=== PATIENT | female | born 1950 | race Caucasian/White ===

== ENCOUNTER → 2018-04-04 18:03 | Outpatient (CLI) | payer MEDICARE, OTHER ==
[2009-12-25 07:48] VITALS: BMI 22.7
== END | disposition home or self-care (01) ==
LOC: D.MAMMO 09:30
DX: Z12.31 Encounter for screening mammogram for malignant neoplasm of breast (principal)

== ENCOUNTER → 2018-09-25 09:36 | Outpatient (CLI) | payer MEDICARE, OTHER ==
[2009-12-25 07:48] VITALS: BMI 22.7
== END | disposition home or self-care (01) ==
LOC: D.MRI 09:36
DX: M54.5 Low back pain (principal)

== ENCOUNTER 2019-04-12 09:00 | Outpatient (CLI) | payer MEDICARE, OTHER ==
[2009-12-25 07:48] VITALS: BMI 22.7
== END 2019-04-12 10:00 | disposition home or self-care (01) ==
LOC: D.MAMMO 09:00
PROVIDERS: ATTEND Clinical Nurse Specialist Family Health
DX: Z12.31 Encounter for screening mammogram for malignant neoplasm of breast (principal)

== ENCOUNTER 2019-06-01 10:34 | Day surgery (SDC) | payer MEDICARE, OTHER ==
[~2019-06-01] VITALS: Ht 167.6 cm; Wt 63.5 kg
[~2019-06-01 10:34] MED LIST: COZAAR50 MG PO; SYNTHROID75 MCG PO
[2019-06-01 11:02] LABS: HEMATOCRIT 42.8 % (36.0-48.0); HEMOGLOBIN 14.4 g/dL (12-16); MCHC 33.6 g/dL (31.0-37.0); MCV 103.9 fL (80.0-100.0); RBC 4.12 10x6/uL (4.00-5.40); RDW 13.5 % (11.5-14.5); WBC 4.8 10x3/uL (4.8-10.8)
[2019-06-01] MEDS ORDERED: NORVASC10 MG PO (11:58)
[2019-06-01] MEDS ORDERED: CENTRUM SILVER1 EAC3 PO (11:59)
[2019-06-01] MEDS ORDERED: CO Q-10100 MG PO (12:00)
[2019-06-01] MEDS ORDERED: OS-CAL500 MG PO (12:01)
[2019-06-01] MEDS ORDERED: ZYLOPRIM100 MG PO (12:01)
[2019-06-01] MEDS ORDERED: EC-NAPROSYN500 MG PO (12:02)
[2019-06-01 12:03] VITALS: BP 144/84; Ht 167.6 cm; Wt 63.5 kg
[2019-06-01] MEDS ORDERED: TYLENOL W/CODEI1 TAB PO (16:30)
--- NOTE | 2019-06-02 08:27 | OP ---
PATIENT NAME: ILDEFONSO LOZANO MEDICAL RECORD: [id number] :48 LOCATION:[facility] ADMISSION DATE: SURGEON: TAI UGARTE DO DATE OF OPERATION: 06/01/2019 PROCEDURE PERFORMED: Excision of ganglion cyst of the left foot. PREOPERATIVE DIAGNOSIS: Cyst, left foot. POSTOPERATIVE DIAGNOSIS: Cyst, left foot. INDICATION FOR PROCEDURE: Ms. Lozano is a 69-year-old female who had a cyst on her left anterior foot, right over the anterior tibialis tendon. She had it drained and the hole never healed and it kept draining, draining, and draining. She was concerned about it and came to see me this week. I told her we can excise the cyst and there would be a chance of recurrence also infection, bleeding, damage to nerves or vessels, need for further surgery, blood clots, and even and she signed the consent. SURGEON: Tai Ugarte DO DESCRIPTION OF PROCEDURE: The patient was taken to the operative suite, laid in supine position, given general anesthetic and LMA was placed. She was given 1 gram Ancef. The left lower extremity was then prepped and draped in sterile fashion. Timeout was performed. Everybody was in agreeance with correct side, site, patient, and procedure. The left foot was then exsanguinated with an Esmarch and the tourniquet was inflated to 250 mmHg, it was up for 8 minutes. The incision was then made over the cyst, which is right over the anterior tibialis tendon. Once I made the incision, the cyst had congealed and this congealed material was removed out of the wound, ensuring the tendon was intact and indeed was. There were no other cysts in the area and then took a 3-0 Vicryl in an interrupted fashion to close the skin and 4-0 Monocryl horizontal mattress fashion on the skin. The tourniquet was deflated at 8 minutes. There was no bleeding and is dressed with Adaptic, 4 x 4s, Kerlix, and then Dax wrap wrapped to the foot. She was awakened and taken to recovery in stable condition. BLOOD LOSS: Minimal. COMPLICATIONS: None. TRANSINT:[id number] Voice Confirmation ID: [id number] DOCUMENT ID: [id number] TAI UGARTE DO at 0827 CC: [id number] DICTATION DATE: 06/01/19 1626 CULINARY ASSISTANT: 06/02/19 0046 [facility] 06/01/19 [facility] [address] [place] [address]
== END 2019-06-01 17:45 | disposition home or self-care (01) ==
LOC: D.OPS 10:34 → D.PAN 13:15 → D.OPS 13:15
PROVIDERS: Anesthesiology; ATTEND Orthopaedic Surgery
DX: M67.472 Ganglion, left ankle and foot (principal); Z01.812 Encounter for preprocedural laboratory examination

== ENCOUNTER 2020-02-25 15:00 | Inpatient (IN) | payer MEDICARE ==
[~2020-02-25] VITALS: Ht 167.6 cm; Wt 60.8 kg
[~2020-02-25 15:00] MED LIST changes: +CENTRUM SILVER1 EAC3 PO; +CO Q-10100 MG PO; +EC-NAPROSYN500 MG PO; +NORVASC10 MG PO; +OS-CAL500 MG PO; +TYLENOL W/CODEI1 TAB PO; +ZYLOPRIM100 MG PO
[2020-02-25 15:57] LABS: HEMATOCRIT 37.2 % (36.0-48.0); HEMOGLOBIN 12.7 g/dL (12-16); LYMPHOCYTES 12.4 % (15-50); MCH 34.3 pg (26.0-34.0); MCHC 34.1 g/dL (31.0-37.0); MCV 100.5 fL (80.0-100.0); MEAN PLATELET VOLUME 10.4 fL (7.4-10.4); NEUTROPHILS 79.7 % (40-80); PLATELET COUNT 199 10x3/uL (130-400); WBC 10.4 10x3/uL (4.8-10.8)
[2020-02-25 17:16] LABS: ALBUMIN 3.1 g/dL (3.4-5.0); ALKALINE PHOSPHATASE 56 U/L (30-120); ALT (SGPT) 24 U/L (10-68); BILIRUBIN - TOTAL 0.36 mg/dL (0.2-1.3); CALC OSMOLALITY 266 mosm/kg (275-300); CALCIUM 8.9 mg/dL (8.5-10.1); CARBON DIOXIDE 28.5 mmol/L (21.0-32.0); CHLORIDE - SERUM 98 mmol/L (98-107); CREATININE - SERUM 0.7 mg/dL (0.6-1.3); GLUCOSE 102 mg/dL (74-106); POTASSIUM - SERUM 3.5 mmol/L (3.5-5.1); PROTEIN - SERUM 7.2 g/dL (6.4-8.2); SODIUM 134 mmol/L (136-145); UREA NITROGEN 11 mg/dL (7-18); eGFR NON AFRICAN AMERICAN 88 mL/min (90-120)
--- NOTE | 2020-02-25 17:20 | NUR ---
RECEIVED PT TO ROOM.
--- NOTE | 2020-02-25 19:07 | NUR ---
PT ALERT. RECEIVING ULTRASOUND.
[2020-02-25 20:50] LABS: INR 1.01 (0.85-1.17); PROTIME 13.3 SECONDS (11.6-15.0)
[2020-02-25 20:51] LABS: APTT 48.2 SECONDS (22.8-39.4)
--- NOTE | 2020-02-25 22:15 | NUR ---
PT ARRIVED TO FLOOR AOX4. AMBULATED FROM WC TO BATHROOM THEN TO BED. ABLE TO WALK ON LEFT FOOT BUT PAINFUL. FOOT RED AND SWOLLEN. DRAINAGE COMING FROM BETWEEN FOURTH AND FIFTH TOE. PT STATES SHE WAS SEEING THE WOUND CLINIC FOR THE LAST COUPLE WEEKS BUT IT HAS ONLY GOTTEN WORSE. IV RIGHT FA SL. STATES PAIN 01/22. GAVE MORPHINE ORDERED. PROVIDED WATER. DENIES OTHER NEEDS. CL IN REACH, WILL CTM
[2020-02-25 22:57] VITALS: BP 146/83; BMI 21.6
[2020-02-26] MEDS ORDERED: FOLIC ACID1 MG PO (00:45)
[2020-02-26] MEDS ORDERED: COLCRYS0.6 MG PO (00:45)
[2020-02-26] MEDS ORDERED: PLAVIX75 MG PO (00:45)
[2020-02-26] MEDS ORDERED: VIT PO (00:47)
[2020-02-26] MEDS ORDERED: HAIR SKIN PO (00:47)
[2020-02-26] MEDS ORDERED: ESTRATEST 1.25-1 TAB PO (00:48)
[2020-02-26] MEDS ORDERED: OMEPRAZOLE20 M1 PO (00:49)
[2020-02-26 04:00] VITALS: BP 143/82
[2020-02-26 05:18] LABS: HEMATOCRIT 35.6 % (36.0-48.0); HEMOGLOBIN 11.9 g/dL (12-16); LYMPHOCYTES 17.3 % (15-50); MCH 33.7 pg (26.0-34.0); MCHC 33.4 g/dL (31.0-37.0); MCV 100.8 fL (80.0-100.0); MEAN PLATELET VOLUME 10.1 fL (7.4-10.4); NEUTROPHILS 72.2 % (40-80); PLATELET COUNT 202 10x3/uL (130-400); RBC 3.53 10x6/uL (4.00-5.40); RDW 12.9 % (11.5-14.5)
[2020-02-26 05:39] LABS: ALBUMIN 2.7 g/dL (3.4-5.0); ALKALINE PHOSPHATASE 51 U/L (30-120); ALT (SGPT) 20 U/L (10-68); BILIRUBIN - TOTAL 0.46 mg/dL (0.2-1.3); CALC OSMOLALITY 268 mosm/kg (275-300); CALCIUM 8.3 mg/dL (8.5-10.1); CARBON DIOXIDE 31.1 mmol/L (21.0-32.0); CHLORIDE - SERUM 101 mmol/L (98-107); CREATININE - SERUM 0.6 mg/dL (0.6-1.3); GLUCOSE 94 mg/dL (74-106); POTASSIUM - SERUM 3.2 mmol/L (3.5-5.1); PROTEIN - SERUM 6.5 g/dL (6.4-8.2); SODIUM 135 mmol/L (136-145); UREA NITROGEN 9 mg/dL (7-18); eGFR NON AFRICAN AMERICAN > 90 mL/min (90-120)
[2020-02-26 09:35] VITALS: BP 131/83
[2020-02-26 13:17] VITALS: BP 142/80
[2020-02-26 15:05] VITALS: Ht 167.6 cm; Wt 60.8 kg
--- NOTE | 2020-02-26 18:22 | NUR ---
PATIENT BACK FROM MRI. IV INTACT. NO COMPLAINTS. WILL START IV ANTIBIOTICS. CALL LIGHT WITHIN REACH.
[2020-02-26 20:00] VITALS: BP 136/80
--- NOTE | 2020-02-26 20:00 | NUR ---
PT SITTING UP IN BED WITHOUT DISTRESS, AOX4. FAMILY AT BEDSIDE. RIGHT FA IV LEAKING, REMOVED WITH CATH INTACT. RESITED 20G TO LEFT FA X1 ATTEMPT. CALLED DR PRICE AND RECIEVED ORDERS FOR MIRALAX AND BENADRYL, SEE MAR. HIBI CLEANSE BATH AT THIS TIME, LINENS CHANGED. DENIES OTHER NEEDS. CL IN REACH, WILL CTM
[2020-02-27] VITALS (13 sets, daily range): BP systolic 114–146; BP diastolic 61–75
--- NOTE | 2020-02-27 19:27 | NUR ---
PATIENT IN BED WITH IV INTACT. NO COMPLAINTS OR SIGNS OF DISTRESS. VS STABLE. BLOCK STILL WORKING FOR PATIENT PAIN. DRESSING TO LLE INTACT. SCD ON RLE ON AND WORKING. CALL LIGHT WITHIN REACH.
[2020-02-28] VITALS: BP 151/64
[2020-02-28 04:00] VITALS: BP 107/73
[2020-02-28 06:20] LABS: CALC OSMOLALITY 275 mosm/kg (275-300); CALCIUM 7.5 mg/dL (8.5-10.1); CHLORIDE - SERUM 104 mmol/L (98-107); CREATININE - SERUM 0.6 mg/dL (0.6-1.3); GLUCOSE 102 mg/dL (74-106); MAGNESIUM - SERUM 2.1 mg/dL (1.8-2.4); PHOSPHOROUS 2.6 mg/dL (2.5-4.9); POTASSIUM - SERUM 3.2 mmol/L (3.5-5.1); SODIUM 139 mmol/L (136-145); UREA NITROGEN 7 mg/dL (7-18); eGFR NON AFRICAN AMERICAN > 90 mL/min (90-120)
[2020-02-28 07:40] LABS: HEMATOCRIT 35.5 % (36.0-48.0); LYMPHOCYTES 11.3 % (15-50); MCH 34.2 pg (26.0-34.0); MCHC 33.8 g/dL (31.0-37.0); MCV 101.1 fL (80.0-100.0); MEAN PLATELET VOLUME 10.5 fL (7.4-10.4); NEUTROPHILS 80.8 % (40-80); PLATELET COUNT 252 10x3/uL (130-400); RBC 3.51 10x6/uL (4.00-5.40); RDW 12.5 % (11.5-14.5); WBC 7.2 10x3/uL (4.8-10.8)
--- NOTE | 2020-02-28 08:01 | OP ---
PATIENT NAME: ILDEFONSO LOZANO MEDICAL RECORD: [id number] :48 LOCATION:D.MS [id number] ADMISSION DATE:02/25/20 SURGEON: TAI UGARTE DO DATE OF OPERATION: 02/27/2020 PROCEDURE PERFORMED: Left fourth toe amputation. PREOPERATIVE DIAGNOSIS: Left foot fourth toe osteomyelitis. POSTOPERATIVE DIAGNOSIS: Left foot fourth toe osteomyelitis. INDICATIONS: Ms. Lozano is a 69-year-old female who presented to the hospital with swelling in the left fourth toe, started to turn necrotic, it was quite swollen. MRI was done showing osteomyelitis in the proximal phalanx. I informed her due to the size and swelling and necrosis of the soft tissue, we need to do an amputation and she has very poor likelihood of healing it on her own. She is okay with that and is aware of the risks including further amputation of the foot, further infection, bleeding, damage to nerves and vessels and she signed the consent. SURGEON: Tai Ugarte DO DESCRIPTION OF PROCEDURE: The patient was given a block by anesthesia in the preoperative area, taken to the operative suite. She is on scheduled vancomycin. The left lower extremity was prepped after she was sedated and LMA was placed and then left lower extremity was draped. I then made an elliptical incision around the base of the fourth toe and removed the toe and rongeured back the fourth metatarsal, removing the head, so there was no articular cartilage left. I then irrigated the site and then closed it with a 2-0 Prolene in a modified Donati type stitch. It was then dressed by Adaptic, 4 x 4, Kerlix, and Dax wrap. She was awakened and taken to recovery in stable condition. BLOOD LOSS: Minimal. COMPLICATIONS: None. TRANSINT:[id number] Voice Confirmation ID: [id number] DOCUMENT ID: [id number] TAI UGARTE DO at 0801 CC: [id number] DICTATION DATE: 02/27/20 1251 SWEEPER OPERATOR HIGHWAYS: 02/27/20 1408 ADM IN [facility] [address] [place] [address]
[2020-02-28 10:31] VITALS: BP 137/72
[2020-02-28 13:20] VITALS: BP 149/68
--- NOTE | 2020-02-28 13:28 | NUR ---
Nutrition follow-up: Pt receiving a regular diet with poor po intake at this time Pt to have more toes amputated Labs reviewed Wt: 134# Will continue to provide food choices and honor all food preferences. Will encourage increased po intake Will offer nutritional supplements. RDN following.
[2020-02-28 17:38] VITALS: BP 135/73
[2020-02-28 20:00] VITALS: BP 123/60
--- NOTE | 2020-02-28 20:00 | NUR ---
PT SITTING UP IN BED WITHOUT DISTRESS, AOX4. SON AT BEDSIDE. IV RIGHT FA INFUSING NS @ 75. SCD TO RIGHT LEG. LEFT FOOT DRESSING CDI. PT HAS RED RASH ON BILAT LEGS AND RIGHT ARM. REQUESTING BENADRYL AT BEDTIMES. STATES SHE WILL CALL WHEN READY. DENIES NEED FOR PAIN MED AT THIS TIME. ASSISTED PT IN WASHING HAIR WITH SHAMPOO CAP AND BRUSHED HAIR. PT BRUSHED HER TEETH AT THIS TIME. DENIES OTHER NEEDS. CL IN REACH, WILL CTM
--- NOTE | 2020-02-28 22:00 | NUR ---
PT CALLED AND READY FOR BENADRYL. GAVE ORDERED. DENIES OTHER NEEDS, WILL CTM
[2020-02-29 04:00] VITALS: BP 134/74
[2020-02-29 05:44] LABS: CALC OSMOLALITY 282 mosm/kg (275-300); CALCIUM 7.3 mg/dL (8.5-10.1); CARBON DIOXIDE 26.6 mmol/L (21.0-32.0); CHLORIDE - SERUM 108 mmol/L (98-107); CREATININE - SERUM 0.6 mg/dL (0.6-1.3); GLUCOSE 96 mg/dL (74-106); MAGNESIUM - SERUM 1.8 mg/dL (1.8-2.4); PHOSPHOROUS 2.6 mg/dL (2.5-4.9); POTASSIUM - SERUM 3.2 mmol/L (3.5-5.1); SODIUM 143 mmol/L (136-145); UREA NITROGEN 7 mg/dL (7-18); VANCOMYCIN - TROUGH 12.2 ug/mL (10.0-20.0); eGFR NON AFRICAN AMERICAN > 90 mL/min (90-120)
[2020-02-29 05:46] LABS: HEMATOCRIT 35.5 % (36.0-48.0); LYMPHOCYTES 21.9 % (15-50); MCH 34.5 pg (26.0-34.0); MCHC 33.8 g/dL (31.0-37.0); MEAN PLATELET VOLUME 10.5 fL (7.4-10.4); NEUTROPHILS 71.8 % (40-80); PLATELET COUNT 223 10x3/uL (130-400); RBC 3.48 10x6/uL (4.00-5.40); RDW 12.8 % (11.5-14.5)
[2020-02-29 09:47] VITALS: BP 156/75
[2020-02-29 13:13] VITALS: BP 157/80
[2020-02-29 17:09] VITALS: BP 157/87
[2020-02-29 20:44] VITALS: BP 166/96
[2020-02-29 21:21] LABS: BILIRUBIN NEGATIVE (NEGATIVE); GLUCOSE NEGATIVE (NEGATIVE); KETONE MODERATE mg/dL (NEGATIVE); NITRITE NEGATIVE (NEGATIVE); SPECIFIC GRAVITY 1.015 (1.005-1.020); UROBILINOGEN NORMAL (NORMAL)
--- NOTE | 2020-03-01 00:29 | NUR ---
PATIENT C/O N/V, PATENT REQUESTED SCOPOLAMINE PATCH, NOTIFIED DR. GRIGGS, RECEIVED NEW ORDER FOR SCOPOLAMINE PATCH, REPLACE EVERY 72 HRS
--- NOTE | 2020-03-01 00:40 | NUR ---
SCOPOLAMINE PATCH APPLIED BEHIND LEFT EAR
[2020-03-01 00:48] VITALS: BP 170/82
[2020-03-01 04:00] VITALS: BP 165/87
[2020-03-01 07:44] LABS: BASOPHILS 0.1 % (0-2); EOSINOPHILS 0.8 % (0-7); HEMATOCRIT 36.5 % (36.0-48.0); IMMATURE GRANULOCYTES 0.3 % (0-5); LYMPHOCYTES 15.1 % (15-50); MCH 33.3 pg (26.0-34.0); MCHC 32.9 g/dL (31.0-37.0); MCV 101.4 fL (80.0-100.0); MONOCYTES 8.9 % (2-11); NEUTROPHILS 74.8 % (40-80); PLATELET COUNT 226 10x3/uL (130-400); RDW 12.5 % (11.5-14.5)
[2020-03-01 07:47] LABS: WBC 10.9 10x3/uL (4.8-10.8)
[2020-03-01 08:06] LABS: CALC OSMOLALITY 281 mosm/kg (275-300); CALCIUM 7.8 mg/dL (8.5-10.1); CARBON DIOXIDE 30.2 mmol/L (21.0-32.0); CHLORIDE - SERUM 108 mmol/L (98-107); CREATININE - SERUM 0.6 mg/dL (0.6-1.3); GLUCOSE 129 mg/dL (74-106); MAGNESIUM - SERUM 1.9 mg/dL (1.8-2.4); PHOSPHOROUS 2.6 mg/dL (2.5-4.9); POTASSIUM - SERUM 3.8 mmol/L (3.5-5.1); SODIUM 142 mmol/L (136-145); UREA NITROGEN 4 mg/dL (7-18); eGFR NON AFRICAN AMERICAN > 90 mL/min (90-120)
--- NOTE | 2020-03-01 09:00 | NUR ---
DRESSINGS CHANGED TO BLE PER ORDER WITH NO S/S OF INFECTION NOTED. DRESSING APPLIED AND SECURED WITH ANA ROSA WRAP. UP ADLIB AND DENIES ANY PAIN AT THIS TIME.
[2020-03-01 10:08] VITALS: BP 125/60
[2020-03-01 12:00] VITALS: BP 116/73
[2020-03-01 16:00] VITALS: BP 137/77
--- NOTE | 2020-03-01 19:45 | NUR ---
ASSUMED CARE OF PATIENT AT 1900, PATIENT RESTING QUIETLY, REINFORCED DRESSING TO LEFT LEG, IV INFUSING WITHOUT COMPLICATIONS, DENIES FURTHER NEEDS, WILL CONTINUE TO MONITOR PATIENT, PATIENT UP AD JERED, TOLERATES WELL
[2020-03-01 20:00] VITALS: BP 131/63
[2020-03-02] VITALS: BP 143/78
[2020-03-02 04:00] VITALS: BP 116/61
[2020-03-02 05:00] LABS: BASOPHILS 0.2 % (0-2); EOSINOPHILS 1.4 % (0-7); HEMATOCRIT 32.6 % (36.0-48.0); HEMOGLOBIN 10.9 g/dL (12-16); IMMATURE GRANULOCYTES 0.3 % (0-5); LYMPHOCYTES 19.1 % (15-50); MCH 33.3 pg (26.0-34.0); MCHC 33.4 g/dL (31.0-37.0); MCV 99.7 fL (80.0-100.0); MEAN PLATELET VOLUME 10.2 fL (7.4-10.4); MONOCYTES 8.1 % (2-11); NEUTROPHILS 70.9 % (40-80); PLATELET COUNT 250 10x3/uL (130-400); RBC 3.27 10x6/uL (4.00-5.40); RDW 12.5 % (11.5-14.5); WBC 8.6 10x3/uL (4.8-10.8)
[2020-03-02 05:16] LABS: CALC OSMOLALITY 280 mosm/kg (275-300); CALCIUM 7.9 mg/dL (8.5-10.1); CARBON DIOXIDE 30.4 mmol/L (21.0-32.0); CHLORIDE - SERUM 108 mmol/L (98-107); CREATININE - SERUM 0.6 mg/dL (0.6-1.3); GLUCOSE 111 mg/dL (74-106); MAGNESIUM - SERUM 1.7 mg/dL (1.8-2.4); POTASSIUM - SERUM 3.4 mmol/L (3.5-5.1); SODIUM 142 mmol/L (136-145); UREA NITROGEN 5 mg/dL (7-18); eGFR NON AFRICAN AMERICAN > 90 mL/min (90-120)
--- NOTE | 2020-03-02 07:30 | NUR ---
resting in bed, no distress noted, dressing to l foot dry and intact, iv infusing, contact isolation, cont to monitor labs, medicated for pain
[2020-03-02 09:04] VITALS: BP 151/65
--- NOTE | 2020-03-02 11:00 | NUR ---
DRESSING CHANGED TO LEFT FOOT BY RENAN TAPIA
[2020-03-02 12:00] VITALS: BP 114/70
[2020-03-02 16:00] VITALS: BP 138/75
--- NOTE | 2020-03-02 19:20 | NUR ---
ASSUMED CARE OF PATIENT AT 1900, PATIENT RESTING QUIETLY WITH EYES CLOSED, NO DISTRESS NOTED, DRESSING TO LEFT FOOT C/D/I, IV INFUSING #3 BAG OF POTASSIUM, PATIENT DENIES NEEDS AT THIS TIME, WILL CONTINUE TO MONITOR PATIENT, CALL LIGHT WITHIN REACH
[2020-03-02 20:00] VITALS: BP 138/67
[2020-03-03] VITALS: BP 140/64
[2020-03-03 04:00] VITALS: BP 135/60
[2020-03-03 05:25] LABS: BASOPHILS 0.3 % (0-2); EOSINOPHILS 2.2 % (0-7); HEMATOCRIT 33.6 % (36.0-48.0); HEMOGLOBIN 11.1 g/dL (12-16); IMMATURE GRANULOCYTES 0.3 % (0-5); LYMPHOCYTES 16.5 % (15-50); MCH 32.9 pg (26.0-34.0); MCV 99.7 fL (80.0-100.0); MEAN PLATELET VOLUME 10.3 fL (7.4-10.4); MONOCYTES 7.7 % (2-11); PLATELET COUNT 263 10x3/uL (130-400); RBC 3.37 10x6/uL (4.00-5.40); WBC 7.2 10x3/uL (4.8-10.8)
[2020-03-03 05:48] LABS: CALC OSMOLALITY 275 mosm/kg (275-300); CALCIUM 7.5 mg/dL (8.5-10.1); CHLORIDE - SERUM 106 mmol/L (98-107); CREATININE - SERUM 0.6 mg/dL (0.6-1.3); GLUCOSE 95 mg/dL (74-106); MAGNESIUM - SERUM 1.9 mg/dL (1.8-2.4); PHOSPHOROUS 3.6 mg/dL (2.5-4.9); POTASSIUM - SERUM 3.6 mmol/L (3.5-5.1); SODIUM 140 mmol/L (136-145); eGFR NON AFRICAN AMERICAN > 90 mL/min (90-120)
[2020-03-03 05:58] LABS: UREA NITROGEN 3 mg/dL (7-18)
--- NOTE | 2020-03-03 07:05 | NUR ---
A&O RESTING IN BED WITH EYES OPEN. NO C/O PAIN. NO S/S OF ACUTE DISTRESS NOTED. ON CONTACT ISOLATION. SCD TO RIGHT LEG. AMPUTATION OF 4TH TOE ON LEFT FOOT, DRESSING C/D/I. RIGHT FOOT DRESSING, C/D/I. ON 1L O2, NC. IV TO LEFT FOREARM, NS INFUSING @ 75ML/HR. SITE PATENT WITHOUT REDNESS OR SWELLING. DENIES ANY NEEDS AT THIS TIME. CALL LIGHT IN REACH. WILL CONTINUE TO MONITOR.
[2020-03-03 09:07] VITALS: BP 133/43
[2020-03-03] MEDS ORDERED: HYDROCODON-ACE1 EA10 PO (11:40)
--- NOTE | 2020-03-03 11:40 | NUR ---
CHANGED DRESSING TO LEFT FOOT. REMOVED OLD DRESSING. APPLIED ADAPTIC, 4X4 GAUZE, WRAPPED WITH KERLEX AND ANA ROSA WRAP. CHANGED DRESSING TO RIGHT HEEL. REMOVED OLD DRESSING. CLEANED WITH STERILE SALINE AND DRIED. COVERED WITH 2X2 GAUZE.
[2020-03-03 12:34] VITALS: BP 157/70
--- NOTE | 2020-03-03 12:37 | MORECARE ---
CASE MANAGEMENT DISCHARGE SUMMARY PATIENT: ILDEFONSO LOZANO DEYANIRA UNIT: [id number] ADM DATE: 02/25/20 AGE: 69 : 49 SEX: F ROOM/BED: D.2217 AUTHOR: DIANNE CANNON PHYSICIAN: REFERRING PHYSICIAN: JONATHON PRICE MD DATE OF SERVICE: 03/03/20 Discharge Plan Patient Name: ILDEFONSO LOZANO [facility] [facility] 1950 Planned Disposition: Home with Infusion Therapy Services Anticipated Discharge Date: Discharge Date: Expected LOS: Initial Reviewer: [email or web address] Initial Review Date: 02/25/2020 Generated: 03/03/20 1:36 pm DCPIA - Discharge Planning Initial Assessment Updated by [email or web address]: Yara Jerze on 03/03/20 12:33 pm * Is the patient Alert and Oriented? Yes * PCP DEE * Pharmacy [facility] * Preadmission Environment Home with Family * ADLs Independent * Equipment None * List name and contact numbers for known caregivers / representatives who currently or will assist patient after discharge: SWEETIE LOZANO [phone] * Verbal permission to speak to the caregivers and representatives has been obtained from the patient. N/A * Community resources currently utilized None * Additional services required to return to the preadmission environment? Yes * Can the patient safely return to the preadmission environment? Yes * Has this patient been hospitalized within the prior 30 days at any hospital? No External Providers External Provider: OTHER-OTHER Next Contact Date: Service Request Date: Service Type: Resolution: Reviewer: Comments: [facility] Next Contact Date: Service Request Date: Service Type: Resolution: Reviewer: Comments: Patient Name: ILDEFONSO LOZANO Page [phone] at 1237 All edits/amendments must be made on the electronic document DICTATION DATE: 03/03/20 1236 FURNACE FITTER: EUGENIO 03/03/20 1236 RPT#: [id number] DC DATE: STATUS: ADM IN [facility] [address] [place] [address] END OF REPORT
--- NOTE | 2020-03-03 12:45 | MORECARE ---
CASE MANAGEMENT DISCHARGE SUMMARY PATIENT: ILDEFONSO LOZANO DEYANIRA UNIT: [id number] ADM DATE: 02/25/20 AGE: 69 : 49 SEX: F ROOM/BED: D.5606 AUTHOR: DAVIS,DOC PHYSICIAN: REFERRING PHYSICIAN: JONATHON PRICE MD DATE OF SERVICE: 03/03/20 Discharge Plan Patient Name: ILDEFONSO LOZANO Facility: [facility]:[place] : 1950 Planned Disposition: Home with Infusion Therapy Services Anticipated Discharge Date: Discharge Date: Expected LOS: Initial Reviewer: [email or web address] Initial Review Date: 02/25/2020 Generated: 03/03/20 1:44 pm Comments DCP- Discharge Planning Updated by [email or web address]: Yara Jerez on 03/03/20 11:[address] Patient Name: ILDEFONSO LOZANO Admission Status: ER Accout number: [id number] Admission Date: 02-25-2020 : 1950 Admission Diagnosis:CELLULITIS OF LEFT LOWER LIMB Attending: JONATHON PRICE Current LOS: 7 Anticipated DC Date: Planned Disposition: Home with Infusion Therapy Services Primary Insurance: [employer] CHOICE PPO MCR ADVANT Discharge Planning Comments: CM met with patient to complete initial dc planning assessment. CM educated patient on the CM role and verbal consent given by patient to complete assessment. Patient lives at home with her spouse where she is independent with her care. At discharge patient plans to return home and feels this is a safe discharge. CM discussed availability of home health, rehab services, and medical equipment. She will need IV abx set up and HH. She will also need a walker at discharge. SUJEY has been signed for [facility] [place]. IV abx that takes her insurance and did not know care about dme company. IMM served and explained. Patient denied known discharge needs at this time. CM will continue to follow and will assist as needed with dc plans/needs. Insurance Claims Adjuster: Yara Jerez DCPIA - Discharge Planning Initial Assessment Updated by [email or web address]: Yara Jerez on 03/03/20 12:33 pm * Is the patient Alert and Oriented? Yes * PCP DEE * Pharmacy [facility] [address] * Preadmission Environment Home with Family * ADLs Independent * Equipment None * List name and contact numbers for known caregivers / representatives who currently or will assist patient after discharge: SWEETIE LOZANO [phone] * Verbal permission to speak to the caregivers and representatives has been obtained from the patient. N/A * Community resources currently utilized None * Additional services required to return to the preadmission environment? Yes * Can the patient safely return to the preadmission environment? Yes * Has this patient been hospitalized within the prior 30 days at any hospital? No External Providers External Provider: [facility] Next Contact Date: Service Request Date: Service Type: Resolution: Reviewer: Comments: Coverage Notice Reviewer: [email or web address] Tc Jerez Notice Issued Date-Time: 03/03/2020 12:10 Notice Type: IM Discharge Notice Notice Delivered To: Patient Relationship to Patient: Spouse Grinding Wheel Dresser Name: SWEETIE Delivery Method: HAND - Hand Delivered Miguelina Days: Prior Verbal Notification: Recipient Understood Notice: Yes Recipient Signature: Yes Med Rec Note Co-signed by Attending: Coverage Notice Comment: IMM SERVED AND EXPLAINED Reviewer: [id number] Tc Jerez Notice Issued Date-Time: 03/03/2020 12:10 Notice Type: Patient Choice Letter Notice Delivered To: Patient Relationship to Patient: Spouse Grinding Wheel Dresser Name: SWEETIE Delivery Method: HAND - Hand Delivered Miguelina Days: Prior Verbal Notification: Recipient Understood Notice: Yes Recipient Signature: Yes Med Rec Note Co-signed by Attending: Coverage Notice Comment: [facility] D[facility] Last DP export: 03/03/20 11:37 a Patient Name: ILDEFONSO LOZANO Page [phone] at 1245 All edits/amendments must be made on the electronic document DICTATION DATE: 03/03/20 1244 COATINGS INSPECTOR: EUGENIO 03/03/20 1244 RPT#: [id number] DC DATE: STATUS: ADM IN [facility] [address] [place] [address] END OF REPORT
--- NOTE | 2020-03-03 13:31 | NUR ---
I have reviewed this patient and I concur with the Shift Assessment completed by the Licensed Practical Nurse today this shift.
--- NOTE | 2020-03-03 14:03 | MORECARE ---
CASE MANAGEMENT DISCHARGE SUMMARY PATIENT: ILDEFONSO LOZANO DEYANIRA UNIT: [id number] ADM DATE: 02/25/20 AGE: 69 : 49 SEX: F ROOM/BED: D.0252 AUTHOR: DAVIS,DOC PHYSICIAN: REFERRING PHYSICIAN: JONATHON PRICE MD DATE OF SERVICE: 03/03/20 Discharge Plan Patient Name: ILDEFONSO LOZANO Facility: [facility]:[place] : 1950 Planned Disposition: Home with Infusion Therapy Services Anticipated Discharge Date: Discharge Date: Expected LOS: Initial Reviewer: [email or web address] Initial Review Date: 02/25/2020 Generated: 03/03/20 3:02 pm Comments DCP- Discharge Planning Updated by [email or web address]: Yara Jerez on 03/03/20 11:[address] Patient Name: ILDEFONSO LOZANO Admission Status: ER Accout number: [id number] Admission Date: 02-25-2020 : 1950 Admission Diagnosis:CELLULITIS OF LEFT LOWER LIMB Attending: JONATHON PRICE Current LOS: 7 Anticipated DC Date: Planned Disposition: Home with Infusion Therapy Services Primary Insurance: [employer] CHOICE PPO MCR ADVANT Discharge Planning Comments: CM met with patient to complete initial dc planning assessment. CM educated patient on the CM role and verbal consent given by patient to complete assessment. Patient lives at home with her spouse where she is independent with her care. At discharge patient plans to return home and feels this is a safe discharge. CM discussed availability of home health, rehab services, and medical equipment. She will need IV abx set up and HH. She will also need a walker at discharge. SUJEY has been signed for [facility] [place]. IV abx that takes her insurance and did not know care about dme company. IMM served and explained. Patient denied known discharge needs at this time. CM will continue to follow and will assist as needed with dc plans/needs. Fat Purification Worker: Yara Jerez DCPIA - Discharge Planning Initial Assessment Updated by [email or web address]: Yara Jerez on 03/03/20 12:33 pm * Is the patient Alert and Oriented? Yes * PCP DEE * Pharmacy [facility] [address] * Preadmission Environment Home with Family * ADLs Independent * Equipment None * List name and contact numbers for known caregivers / representatives who currently or will assist patient after discharge: SWEETIE LOZANO [phone] * Verbal permission to speak to the caregivers and representatives has been obtained from the patient. N/A * Community resources currently utilized None * Additional services required to return to the preadmission environment? Yes * Can the patient safely return to the preadmission environment? Yes * Has this patient been hospitalized within the prior 30 days at any hospital? No External Providers [facility] Next Contact Date: Service Request Date: Service Type: Resolution: Reviewer: Comments: Coverage Notice Reviewer: [email or web address] Tc Jerez Notice Issued Date-Time: 03/03/2020 12:10 Notice Type: IM Discharge Notice Notice Delivered To: Patient Relationship to Patient: Spouse Public Health Veterinarian Name: SWEETIE Delivery Method: HAND - Hand Delivered Miguelina Days: Prior Verbal Notification: Recipient Understood Notice: Yes Recipient Signature: Yes Med Rec Note Co-signed by Attending: Coverage Notice Comment: IMM SERVED AND EXPLAINED Reviewer: [id number] Jerez Notice Issued Date-Time: 03/03/2020 12:10 Notice Type: Patient Choice Letter Notice Delivered To: Patient Relationship to Patient: Spouse Public Health Veterinarian Name: SWEETIE Delivery Method: HAND - Hand Delivered Miguelina Days: Prior Verbal Notification: Recipient Understood Notice: Yes Recipient Signature: Yes Med Rec Note Co-signed by Attending: Coverage Notice Comment: [facility] D[facility] Last DP export: 03/03/20 11:45 a Patient Name: ILDEFONSO LOZANO Page [phone] at 1403 All edits/amendments must be made on the electronic document DICTATION DATE: 03/03/20 1403 LAND LAW EXAMINER: EUGENIO 03/03/20 1403 RPT#: [id number] DC DATE: STATUS: ADM IN [facility] [address] [place] [address] END OF REPORT
--- NOTE | 2020-03-03 14:11 | MORECARE ---
CASE MANAGEMENT DISCHARGE SUMMARY PATIENT: ILDEFONSO LOZANO DEYANIRA UNIT: [id number] ADM DATE: 02/25/20 AGE: 69 : 49 SEX: F ROOM/BED: D.4434 AUTHOR: DAVIS,DOC PHYSICIAN: REFERRING PHYSICIAN: JONATHON PRICE MD DATE OF SERVICE: 03/03/20 Discharge Plan Patient Name: ILDEFONSO LOZANO Facility: [facility]:[place] : 1950 Planned Disposition: Home with Infusion Therapy Services Anticipated Discharge Date: Discharge Date: Expected LOS: Initial Reviewer: [email or web address] Initial Review Date: 02/25/2020 Generated: 03/03/20 3:10 pm Comments DCP- Discharge Planning Updated by [id number]: Yara Jerez on 03/03/20 11:[address] Patient Name: ILDEFONSO LOZANO Admission Status: ER Accout number: [id number] Admission Date: 02-25-2020 : 1950 Admission Diagnosis:CELLULITIS OF LEFT LOWER LIMB Attending: JONATHON PRICE Current LOS: 7 Anticipated DC Date: Planned Disposition: Home with Infusion Therapy Services Primary Insurance: [employer] CHOICE PPO MCR ADVANT Discharge Planning Comments: CM met with patient to complete initial dc planning assessment. CM educated patient on the CM role and verbal consent given by patient to complete assessment. Patient lives at home with her spouse where she is independent with her care. At discharge patient plans to return home and feels this is a safe discharge. CM discussed availability of home health, rehab services, and medical equipment. She will need IV abx set up and HH. She will also need a walker at discharge. SUJEY has been signed for [facility] or [place]. IV abx that takes her insurance and did not know care about dme company. IMM served and explained. Patient denied known discharge needs at this time. CM will continue to follow and will assist as needed with dc plans/needs. Yeast Culture Operator: Yara Jerez DCPIA - Discharge Planning Initial Assessment Updated by [email or web address]: Yara Jerez on 03/03/20 12:33 pm * Is the patient Alert and Oriented? Yes * PCP DEE * Pharmacy [facility] [address] * Preadmission Environment Home with Family * ADLs Independent * Equipment None * List name and contact numbers for known caregivers / representatives who currently or will assist patient after discharge: SWEETIE LOZANO [phone] * Verbal permission to speak to the caregivers and representatives has been obtained from the patient. N/A * Community resources currently utilized None * Additional services required to return to the preadmission environment? Yes * Can the patient safely return to the preadmission environment? Yes * Has this patient been hospitalized within the prior 30 days at any hospital? No External Providers External Provider: [facility] Next Contact Date: Service Request Date: Service Type: Resolution: Reviewer: Comments: Coverage Notice Reviewer: [id number] Tc Jerez Notice Issued Date-Time: 03/03/2020 12:10 Notice Type: IM Discharge Notice Notice Delivered To: Patient Relationship to Patient: Spouse Executive Relations Specialist Name: SWEETIE Delivery Method: HAND - Hand Delivered Miguelina Days: Prior Verbal Notification: Recipient Understood Notice: Yes Recipient Signature: Yes Med Rec Note Co-signed by Attending: Coverage Notice Comment: IMM SERVED AND EXPLAINED Reviewer: [id number] Tc Jerez Notice Issued Date-Time: 03/03/2020 12:10 Notice Type: Patient Choice Letter Notice Delivered To: Patient Relationship to Patient: Spouse Executive Relations Specialist Name: SWEETIE Delivery Method: HAND - Hand Delivered Miguelina Days: Prior Verbal Notification: Recipient Understood Notice: Yes Recipient Signature: Yes Med Rec Note Co-signed by Attending: Coverage Notice Comment: [facility] D[facility] Last DP export: 03/03/20 1:03 p Patient Name: ILDEFONSO LOZANO Page 10848 at 1411 All edits/amendments must be made on the electronic document DICTATION DATE: 03/03/20 1410 MOLD CLEANER: EUGENIO 03/03/20 1410 RPT#: [id number] DC DATE: STATUS: ADM IN [facility] [address] [place] [address] END OF REPORT
--- NOTE | 2020-03-03 15:01 | MORECARE ---
CASE MANAGEMENT DISCHARGE SUMMARY PATIENT: ILDEFONSO LOZANO DEYANIRA UNIT: [id number] ADM DATE: 02/25/20 AGE: 69 : 49 SEX: F ROOM/BED: D.2007 AUTHOR: DAVIS,DOC PHYSICIAN: REFERRING PHYSICIAN: JONATHON PRICE MD DATE OF SERVICE: 03/03/20 Discharge Plan Patient Name: ILDEFONSO LOZANO Facility: [facility]:[place] : 1950 Planned Disposition: Home with Infusion Therapy Services Anticipated Discharge Date: Discharge Date: Expected LOS: Initial Reviewer: [id number] Initial Review Date: 02/25/2020 Generated: 03/03/20 4:00 pm Comments DCP- Discharge Planning Updated by [email or web address]: Yara Jerez on 03/03/20 11:[address] Patient Name: ILDEFONSO LOZANO Admission Status: ER Accout number: [id number] Admission Date: 02-25-2020 : 1950 Admission Diagnosis:CELLULITIS OF LEFT LOWER LIMB Attending: JONATHON PRICE Current LOS: 7 Anticipated DC Date: Planned Disposition: Home with Infusion Therapy Services Primary Insurance: HUMANA CHOICE PPO MCR ADVANT Discharge Planning Comments: CM met with patient to complete initial dc planning assessment. CM educated patient on the CM role and verbal consent given by patient to complete assessment. Patient lives at home with her spouse where she is independent with her care. At discharge patient plans to return home and feels this is a safe discharge. CM discussed availability of home health, rehab services, and medical equipment. She will need IV abx set up and HH. She will also need a walker at discharge. SUJEY has been signed for [facility] [place]. IV abx that takes her insurance and did not know care about dme company. IMM served and explained. Patient denied known discharge needs at this time. CM will continue to follow and will assist as needed with dc plans/needs. Circular Knitter Helper: Yara Jerez DCPIA - Discharge Planning Initial Assessment Updated by [email or web address]: Yara Jerez on 03/03/20 12:33 pm * Is the patient Alert and Oriented? Yes * PCP DEE * Pharmacy [facility] [address] * Preadmission Environment Home with Family * ADLs Independent * Equipment None * List name and contact numbers for known caregivers / representatives who currently or will assist patient after discharge: SWEETIE LOZANO [phone] * Verbal permission to speak to the caregivers and representatives has been obtained from the patient. N/A * Community resources currently utilized None * Additional services required to return to the preadmission environment? Yes * Can the patient safely return to the preadmission environment? Yes * Has this patient been hospitalized within the prior 30 days at any hospital? No External Providers [facility] Contact Date: Service Request Date: Service Type: Resolution: Reviewer: Comments: Coverage Notice Reviewer: [id number] Tc Jerez Notice Issued Date-Time: 03/03/2020 12:10 Notice Type: IM Discharge Notice Notice Delivered To: Patient Relationship to Patient: Spouse Interactive Media Specialist Name: SWEETIE Delivery Method: HAND - Hand Delivered Miguelina Days: Prior Verbal Notification: Recipient Understood Notice: Yes Recipient Signature: Yes Med Rec Note Co-signed by Attending: Coverage Notice Comment: IMM SERVED AND EXPLAINED Reviewer: [id number] Jerez Notice Issued Date-Time: 03/03/2020 12:10 Notice Type: Patient Choice Letter Notice Delivered To: Patient Relationship to Patient: Spouse Interactive Media Specialist Name: SWEETIE Delivery Method: HAND - Hand Delivered Miguelina Days: Prior Verbal Notification: Recipient Understood Notice: Yes Recipient Signature: Yes Med Rec Note Co-signed by Attending: Coverage Notice Comment: [facility] DME Last DP export: 03/03/20 1:11 p Patient Name: ILDEFONSO LOZANO Page 53823 at 1501 All edits/amendments must be made on the electronic document DICTATION DATE: 03/03/20 1501 BLENDING TANK TENDER: EUGENIO 03/03/20 1501 RPT#: [id number] DC DATE: STATUS: ADM IN [facility] [address] [place] [address] END OF REPORT
--- NOTE | 2020-03-03 15:47 | MORECARE ---
CASE MANAGEMENT DISCHARGE SUMMARY PATIENT: ILDEFONSO LOZANO DEYANIRA UNIT: [id number] ADM DATE: 02/25/20 AGE: 69 : 49 SEX: F ROOM/BED: D.2217 AUTHOR: DAVIS,DOC PHYSICIAN: REFERRING PHYSICIAN: JONATHON PRICE MD DATE OF SERVICE: 03/03/20 Discharge Plan Patient Name: ILDEFONSO LOZANO Facility: [facility]:[place] : 1950 Planned Disposition: Home with Infusion Therapy Services Anticipated Discharge Date: Discharge Date: Expected LOS: Initial Reviewer: [email or web address] Initial Review Date: 02/25/2020 Generated: 03/03/20 4:47 pm Comments DCP- Discharge Planning Updated by [email or web address]: Yara Jerez on 03/03/20 2:[address] ROGELIO WITH [facility] CALLED WITH A LEBLANC OF 1262.00 ( 200.00 PER WEEK PLUS 16. 50 DAILY SUPPLIES) CARRIE WITH [facility] CALLED WITH A LEBLANC OF 1319.96 ( 329.99 PER WEEK) NAN WITH [facility] CALLED AND THE PATIENT WILL BE OUT OF POCKET $1035.00 THE FAMILY WENT WITH [facility] I AM TRYING TO GET A HOME HEALTH COMPANY TO START OF CARE ON Tue IS REVIEWING [facility] CARE ON TUESDAY [facility] WITH [facility] WILL BE DELIVERING A WALKER TO THE HOSPITAL TOMORROW DCP- Discharge Planning Updated by [id number]: Yara Jerez on 03/03/20 11:[address] Patient Name: ILDEFONSO LOZANO Admission Status: ER Accout number: [id number] Admission Date: 02-25-2020 : 1950 Admission Diagnosis:CELLULITIS OF LEFT LOWER LIMB Attending: JONATHON PRICE Current LOS: 7 Anticipated DC Date: Planned Disposition: Home with Infusion Therapy Services Primary Insurance: HUMANA CHOICE PPO MCR ADVANT Discharge Planning Comments: CM met with patient to complete initial dc planning assessment. CM educated patient on the CM role and verbal consent given by patient to complete assessment. Patient lives at home with her spouse where she is independent with her care. At discharge patient plans to return home and feels this is a safe discharge. CM discussed availability of home health, rehab services, and medical equipment. She will need IV abx set up and HH. She will also need a walker at discharge. SUJEY has been signed for [facility] or [place]. IV abx that takes her insurance and did not know care about dme company. IMM served and explained. Patient denied known discharge needs at this time. CM will continue to follow and will assist as needed with dc plans/needs. Photographer Still: Yara Jerez DCPIA - Discharge Planning Initial Assessment Updated by [email or web address]: Yara Jerez on 03/03/20 12:33 pm * Is the patient Alert and Oriented? Yes * PCP DEE * Pharmacy [facility] [address] * Preadmission Environment Home with Family * ADLs Independent * Equipment None * List name and contact numbers for known caregivers / representatives who currently or will assist patient after discharge: SWEETIE LOAZNO [phone] * Verbal permission to speak to the caregivers and representatives has been obtained from the patient. N/A * Community resources currently utilized None * Additional services required to return to the preadmission environment? Yes * Can the patient safely return to the preadmission environment? Yes * Has this patient been hospitalized within the prior 30 days at any hospital? No Coverage Notice Reviewer: [id number] Tc Jerez Notice Issued Date-Time: 03/03/2020 12:10 Notice Type: IM Discharge Notice Notice Delivered To: Patient Relationship to Patient: Spouse Engine Inspector Name: SWEETIE Delivery Method: HAND - Hand Delivered Miguelina Days: Prior Verbal Notification: Recipient Understood Notice: Yes Recipient Signature: Yes Med Rec Note Co-signed by Attending: Coverage Notice Comment: IMM SERVED AND EXPLAINED Reviewer: [id number] Tc Jerez Notice Issued Date-Time: 03/03/2020 12:10 Notice Type: Patient Choice Letter Notice Delivered To: Patient Relationship to Patient: Spouse Engine Inspector Name: SWEETIE Delivery Method: HAND - Hand Delivered Miguelina Days: Prior Verbal Notification: Recipient Understood Notice: Yes Recipient Signature: Yes Med Rec Note Co-signed by Attending: Coverage Notice Comment: [facility] DME Last DP export: 03/03/20 2:01 p Patient Name: ILDEFONSO LOZANO Page 20093 at 1541 All edits/amendments must be made on the electronic document DICTATION DATE: 03/03/20 9598 FUR PULLER: DM 03/03/20 1547 RPT#: [id number] DC DATE: STATUS: ADM IN [facility] [address] [place] [address] END OF REPORT
[2020-03-03 17:09] VITALS: BP 134/75
--- NOTE | 2020-03-03 19:29 | NUR ---
PATIENT RESTING QUIETLY WITH EYES OPEN, NO DISTRESS NOTED, 1L O2 VIA NC IN USE, LEFT MIDLINE C/D/I, IV INFUSING WITHOUT COMPLICATIONS, DRESSING TO LEFT FOOT C/D/I, DENIES NEEDS AT THIS TIME, WILL CONTINUE TO MONITOR PATIENT, CALL LIGHT WITHIN REACH
[2020-03-03 20:00] VITALS: BP 121/72
[2020-03-04] VITALS: BP 135/70
[2020-03-04 07:47] LABS: BASOPHILS 0.3 % (0-2); EOSINOPHILS 2.5 % (0-7); HEMATOCRIT 30.1 % (36.0-48.0); HEMOGLOBIN 10.2 g/dL (12-16); IMMATURE GRANULOCYTES 0.4 % (0-5); LYMPHOCYTES 16.9 % (15-50); MCHC 33.9 g/dL (31.0-37.0); MCV 100.3 fL (80.0-100.0); MEAN PLATELET VOLUME 10.1 fL (7.4-10.4); NEUTROPHILS 70.9 % (40-80); PLATELET COUNT 251 10x3/uL (130-400); WBC 7.3 10x3/uL (4.8-10.8)
[2020-03-04 07:50] LABS: CALC OSMOLALITY 280 mosm/kg (275-300); CALCIUM 7.2 mg/dL (8.5-10.1); CARBON DIOXIDE 29.6 mmol/L (21.0-32.0); CHLORIDE - SERUM 109 mmol/L (98-107); CREATININE - SERUM 0.7 mg/dL (0.6-1.3); GLUCOSE 101 mg/dL (74-106); MAGNESIUM - SERUM 1.9 mg/dL (1.8-2.4); PHOSPHOROUS 2.1 mg/dL (2.5-4.9); POTASSIUM - SERUM 3.2 mmol/L (3.5-5.1); SODIUM 142 mmol/L (136-145); UREA NITROGEN 8 mg/dL (7-18); VANCOMYCIN - TROUGH 15.7 ug/mL (10.0-20.0); eGFR NON AFRICAN AMERICAN 88 mL/min (90-120)
--- NOTE | 2020-03-04 08:30 | NUR ---
DRESSING CHANGE TO LEFT FOOT PER ORDER.
[2020-03-04 08:35] VITALS: BP 127/55
[2020-03-04] MEDS ORDERED: FLORAJEN3 CAPS460 MG PO (11:22)
--- NOTE | 2020-03-04 12:29 | MORECARE ---
CASE MANAGEMENT DISCHARGE SUMMARY PATIENT: ILDEFONSO LOZANO DEYANIRA UNIT: [id number] ADM DATE: 02/25/20 AGE: 69 : 49 SEX: F ROOM/BED: D.2217 AUTHOR: DAVIS,DOC PHYSICIAN: REFERRING PHYSICIAN: JONATHON PRICE MD DATE OF SERVICE: 03/04/20 Discharge Plan Patient Name: ILDEFONSO LOZANO Facility: [facility]:[place] : 1950 Planned Disposition: Home with Infusion Therapy Services Anticipated Discharge Date: Discharge Date: Expected LOS: Initial Reviewer: [id number] Initial Review Date: 02/25/2020 Generated: 03/04/20 1:28 pm Comments DCP- Discharge Planning Updated by [email or web address]: Yara Jerez on 03/03/20 2:[address] ROGELIO WITH [facility] CALLED WITH A LEBLANC OF 1262.00 ( 200.00 PER WEEK PLUS 16. 50 DAILY SUPPLIES) CARRIE WITH [facility] CALLED WITH A LEBLANC OF 1319.96 ( 329.99 PER WEEK) [facility] WITH [facility] CALLED AND THE PATIENT WILL BE OUT OF POCKET $1035.00 THE FAMILY WENT WITH [facility] I AM TRYING TO GET A HOME HEALTH COMPANY TO START OF CARE ON Tue IS REVIEWING [facility] START CARE ON TUESDAY [facility] WILL BE DELIVERING A WALKER TO THE HOSPITAL TOMORROW DCP- Discharge Planning Updated by [email or web address]: Yara Jerez on 03/03/20 11:[address] Patient Name: ILDEFONSO LOZANO Admission Status: ER Accout number: [id number] Admission Date: 02-25-2020 : 1950 Admission Diagnosis:CELLULITIS OF LEFT LOWER LIMB Attending: JONATHON PRICE Current LOS: 7 Anticipated DC Date: Planned Disposition: Home with Infusion Therapy Services Primary Insurance: HUMANA CHOICE PPO MCR ADVANT Discharge Planning Comments: CM met with patient to complete initial dc planning assessment. CM educated patient on the CM role and verbal consent given by patient to complete assessment. Patient lives at home with her spouse where she is independent with her care. At discharge patient plans to return home and feels this is a safe discharge. CM discussed availability of home health, rehab services, and medical equipment. She will need IV abx set up and HH. She will also need a walker at discharge. SUJEY has been signed for [facility] [place]. IV abx that takes her insurance and did not know care about dme company. IMM served and explained. Patient denied known discharge needs at this time. CM will continue to follow and will assist as needed with dc plans/needs. Clinical Resource Director: Yara eJrez DCPIA - Discharge Planning Initial Assessment Updated by [id number]: Yara Jerez on 03/03/20 12:33 pm * Is the patient Alert and Oriented? Yes * PCP DEE * Pharmacy [facility] [address] * Preadmission Environment Home with Family * ADLs Independent * Equipment None * List name and contact numbers for known caregivers / representatives who currently or will assist patient after discharge: SWEETIE LOZANO [phone] * Verbal permission to speak to the caregivers and representatives has been obtained from the patient. N/A * Community resources currently utilized None * Additional services required to return to the preadmission environment? Yes * Can the patient safely return to the preadmission environment? Yes * Has this patient been hospitalized within the prior 30 days at any hospital? No Coverage Notice Reviewer: [id number] Tc Jerez Notice Issued Date-Time: 03/03/2020 12:10 Notice Type: IM Discharge Notice Notice Delivered To: Patient Relationship to Patient: Spouse Parks Recreation Coordinator Name: SWEETIE Delivery Method: HAND - Hand Delivered Miguelina Days: Prior Verbal Notification: Recipient Understood Notice: Yes Recipient Signature: Yes Med Rec Note Co-signed by Attending: Coverage Notice Comment: IMM SERVED AND EXPLAINED Reviewer: [id number] Tc Jerez Notice Issued Date-Time: 03/03/2020 12:10 Notice Type: Patient Choice Letter Notice Delivered To: Patient Relationship to Patient: Spouse Parks Recreation Coordinator Name: SWEETIE Delivery Method: HAND - Hand Delivered Miguelina Days: Prior Verbal Notification: Recipient Understood Notice: Yes Recipient Signature: Yes Med Rec Note Co-signed by Attending: Coverage Notice Comment: [facility] D[facility] Last DP export: 03/03/20 2:47 p Patient Name: ILDEFONSO LOZANO Page 38634 at 1229 All edits/amendments must be made on the electronic document DICTATION DATE: 03/04/201227 WEB MARKETING INTERN: EUGENIO 03/04/20 1228 RPT#: [id number] DC DATE: STATUS: ADM IN [facility] [address] [place] [address] END OF REPORT
[2020-03-04 13:03] VITALS: BP 143/65
--- NOTE | 2020-03-04 13:38 | NUR ---
Nutrition follow-up: Diet: Regular with Ensure TID PO intake ~50% average of meals Labs reviewed +BM Wt: 133# Will continue to provide food choices and honor food preferences. RDN following.
--- NOTE | 2020-03-04 14:59 | NUR ---
MIDLINE DRESSING CHANGED PER STERILE PROCEDURE.
--- NOTE | 2020-03-04 15:51 | MORECARE ---
CASE MANAGEMENT DISCHARGE SUMMARY PATIENT: ILDEFONSO LOZANO UNIT: [id number] ADM DATE: 02/25/20 AGE: 69 : 49 SEX: F ROOM/BED: D.2217 AUTHOR: DAVIS,DOC PHYSICIAN: REFERRING PHYSICIAN: JONATHON PRICE MD DATE OF SERVICE: 03/04/20 Discharge Plan Patient Name: ILDEFONSO LOZANO Facility: [facility]:[place] : 1950 Planned Disposition: Home with Infusion Therapy Services Anticipated Discharge Date: Discharge Date: Expected LOS: Initial Reviewer: [email or web address] Initial Review Date: 02/25/2020 Generated: 03/04/20 4:51 pm Comments DCP- Discharge Planning Updated by [email or web address]: Yara Jerez on 03/04/20 2:[address] Hom[facility] with [facility] was here to teach patient and sunny [place] yan. [facility] will be meeting the patient at home tonight to help them and also will be there in the morning. stated that he found their walker and does not need a new one. CM to follow and assist as needed DCP- Discharge Planning Updated by [id number]: Yara eJrez on 03/03/20 2:[address] ROGELIO WITH [facility] CALLED WITH A LEBLANC OF 1262.00 ( 200.00 PER WEEK PLUS 16. 50 DAILY SUPPLIES) CARRIE WITH [facility] CALLED WITH A LEBLANC OF 1319.96 ( 329.99 PER WEEK) [facility]AN WITH [facility] CALLED AND THE PATIENT WILL BE OUT OF POCKET $1035.00 THE FAMILY WENT WITH [facility] I AM TRYING TO GET A HOME HEALTH COMPANY TO START OF CARE ON TUE [facility] IS REVIEWING [facility] CAN START CARE ON TUESDAY [facility] WILL BE DELIVERING A WALKER TO THE HOSPITAL TOMORROW DCP- Discharge Planning Updated by [email or web address]: Yara Jerez on 03/03/20 11:[address] Patient Name: ILDEFONSO LOZANO Admission Status: ER Accout number: [id number] Admission Date: 02-25-2020 : 1950 Admission Diagnosis:CELLULITIS OF LEFT LOWER LIMB Attending: JONATHON PRICE Current LOS: 7 Anticipated DC Date: Planned Disposition: Home with Infusion Therapy Services Primary Insurance: [employer] CHOICE PPO MCR ADVANT Discharge Planning Comments: CM met with patient to complete initial dc planning assessment. CM educated patient on the CM role and verbal consent given by patient to complete assessment. Patient lives at home with her spouse where she is independent with her care. At discharge patient plans to return home and feels this is a safe discharge. CM discussed availability of home health, rehab services, and medical equipment. She will need IV abx set up and HH. She will also need a walker at discharge. SUJEY has been signed for [facility] or [place]. IV abx that takes her insurance and did not know care about dme company. IMM served and explained. Patient denied known discharge needs at this time. CM will continue to follow and will assist as needed with dc plans/needs. General Ledger Bookkeeper: Yara Jerez DCPIA - Discharge Planning Initial Assessment Updated by [email or web address]: Yara Jerez on 03/03/20 12:33 pm * Is the patient Alert and Oriented? Yes * PCP DEE * Pharmacy [facility] [address] * Preadmission Environment Home with Family * ADLs Independent * Equipment None * List name and contact numbers for known caregivers / representatives who currently or will assist patient after discharge: SWEETIE LOZANO [phone] * Verbal permission to speak to the caregivers and representatives has been obtained from the patient. N/A * Community resources currently utilized None * Additional services required to return to the preadmission environment? Yes * Can the patient safely return to the preadmission environment? Yes * Has this patient been hospitalized within the prior 30 days at any hospital? No Coverage Notice Reviewer: [id number] Tc Jerez Notice Issued Date-Time: 03/03/2020 12:10 Notice Type: IM Discharge Notice Notice Delivered To: Patient Relationship to Patient: Spouse Secretary Office Clerk Name: SWEETIE Delivery Method: HAND - Hand Delivered Miguelina Days: Prior Verbal Notification: Recipient Understood Notice: Yes Recipient Signature: Yes Med Rec Note Co-signed by Attending: Coverage Notice Comment: IMM SERVED AND EXPLAINED Reviewer: [id number] Tc Jerez Notice Issued Date-Time: 03/03/2020 12:10 Notice Type: Patient Choice Letter Notice Delivered To: Patient Relationship to Patient: Spouse Secretary Office Clerk Name: SWEETIE Delivery Method: HAND - Hand Delivered Miguelina Days: Prior Verbal Notification: Recipient Understood Notice: Yes Recipient Signature: Yes Med Rec Note Co-signed by Attending: Coverage Notice Comment: [facility] DME Last DP export: 03/04/20 11:29 a Patient Name: ILDEFONSO LOZANO Page 48260 at 1551 All edits/amendments must be made on the electronic document DICTATION DATE: 03/04/20 155 GATE PERSON: EUGENIO 03/04/201 RPT#: [id number] DC DATE: STATUS: ADM IN [facility] [address] [place] [address] END OF REPORT
--- NOTE | 2020-03-04 16:19 | NUR ---
DISCHARGE INSTRUCTIONS COMPLETE. PATIENT VERBALIZES UNDERSTANDING. LEFT MIDLINE SALINE LOCKED PER ORDERS TO CONTINUE MEDICATION AT HOME. LEFT UNIT VIA WHEELCHAIR TO DISCHARGE HOME. PATIENT DENIES ANY OTHER NEEDS AT THIS TIME.
--- NOTE | 2020-03-05 16:53 | MORECARE ---
CASE MANAGEMENT DISCHARGE SUMMARY PATIENT: ILDEFONSO LOZANO UNIT: [id number] ADM DATE: 02/25/20 AGE: 69 : 49 SEX: F ROOM/BED: D.2217 AUTHOR: DAVIS,DOC PHYSICIAN: REFERRING PHYSICIAN: JONATHON PRICE MD DATE OF SERVICE: 03/05/20 Discharge Plan Patient Name: ILDEFONSO LOZANO Facility: [facility]:[place] : 1950 Planned Disposition: Home with Infusion Therapy Services Anticipated Discharge Date: Discharge Date: 03/04/2020 Expected LOS: Initial Reviewer: [email or web address] Initial Review Date: 02/25/2020 Generated: 03/05/20 5:52 pm Comments DCP- Discharge Planning Updated by [email or web address]: Yara Jerez on 03/04/20 2:[address] Homar with [facility] was here to teach patient and sunny yan. [facility] will be meeting the patient at home tonight to help them and also will be there in the morning. stated that he found their walker and does not need a new one. CM to follow and assist as needed DCP- Discharge Planning Updated by [email or web address]: Yara Jerez on 03/03/20 2:[address] ROGELIO WITH [facility] CALLED WITH A LEBLANC OF 1262.00 ( 200.00 PER WEEK PLUS 16. 50 DAILY SUPPLIES) CARRIE WITH [facility] CALLED WITH A LEBLANC OF 1319.96 ( 329.99 PER WEEK) [facility] WITH [facility] CALLED AND THE PATIENT WILL BE OUT OF POCKET $1035.00 THE FAMILY WENT WITH [facility] I AM TRYING TO GET A HOME HEALTH COMPANY TO START OF CARE ON TUE [facility] IS REVIEWING [facility] CAN START CARE ON TUESDAY NAIMA WITH [facility] WILL BE DELIVERING A WALKER TO THE HOSPITAL TOMORROW DCP- Discharge Planning Updated by [email or web address]: Yara Jerez on 03/03/20 11:[address] Patient Name: ILDEFONSO LOZANO Admission Status: ER Accout number: [id number] Admission Date: 02-25-2020 : 1950 Admission Diagnosis:CELLULITIS OF LEFT LOWER LIMB Attending: JONATHON PRICE Current LOS: 7 Anticipated DC Date: Planned Disposition: Home with Infusion Therapy Services Primary Insurance: HU[employer]NA CHOICE PPO MCR ADVANT Discharge Planning Comments: CM met with patient to complete initial dc planning assessment. CM educated patient on the CM role and verbal consent given by patient to complete assessment. Patient lives at home with her spouse where she is independent with her care. At discharge patient plans to return home and feels this is a safe discharge. CM discussed availability of home health, rehab services, and medical equipment. She will need IV abx set up and HH. She will also need a walker at discharge. SUJEY has been signed for [facility]. IV abx that takes her insurance and did not know care about dme company. IMM served and explained. Patient denied known discharge needs at this time. CM will continue to follow and will assist as needed with dc plans/needs. Dimpling Machine Operator: Yara Jerez DCPIA - Discharge Planning Initial Assessment Updated by [id number]: Yara Jerez on 03/03/20 12:33 pm * Is the patient Alert and Oriented? Yes * PCP DEE * Pharmacy [facility] [address] * Preadmission Environment Home with Family * ADLs Independent * Equipment None * List name and contact numbers for known caregivers / representatives who currently or will assist patient after discharge: SWEETIE LOZANO [phone] * Verbal permission to speak to the caregivers and representatives has been obtained from the patient. N/A * Community resources currently utilized None * Additional services required to return to the preadmission environment? Yes * Can the patient safely return to the preadmission environment? Yes * Has this patient been hospitalized within the prior 30 days at any hospital? No Coverage Notice Reviewer: [id number] Tc Jerez Notice Issued Date-Time: 03/03/2020 12:10 Notice Type: IM Discharge Notice Notice Delivered To: Patient Relationship to Patient: Spouse Lead Generation Specialist Name: SWEETIE Delivery Method: HAND - Hand Delivered Miguelina Days: Prior Verbal Notification: Recipient Understood Notice: Yes Recipient Signature: Yes Med Rec Note Co-signed by Attending: Coverage Notice Comment: IMM SERVED AND EXPLAINED Reviewer: [id number] Tc Jerez Notice Issued Date-Time: 03/03/2020 12:10 Notice Type: Patient Choice Letter Notice Delivered To: Patient Relationship to Patient: Spouse Lead Generation Specialist Name: SWEETIE Delivery Method: HAND - Hand Delivered Miguelina Days: Prior Verbal Notification: Recipient Understood Notice: Yes Recipient Signature: Yes Med Rec Note Co-signed by Attending: Coverage Notice Comment: [facility] DME Last DP export: 03/04/20 2:51 p Patient Name: ILDEFONSO LOZANO Page 24930 at 1653 All edits/amendments must be made on the electronic document DICTATION DATE: 03/05/201651 CAREER ORIENTATION TEACHER: EUGENIO 03/05/201651 RPT#: [id number] DC DATE:03/04/20 STATUS: DIS IN [facility] [address] [place] [address] END OF REPORT
== END 2020-03-04 16:21 | disposition home health service (06) | DRG 580 ==
LOC: D.ER 15:00 → D.MS 17:17
PROVIDERS: Family Medicine; Orthopaedic Surgery; ADMIT Family Medicine; ATTEND Family Medicine
PROC: 0Y6W0Z2 Detachment at Left 4th Toe, Mid, Open Approach (ICD-10-PCS; principal; 2020-02-27 12:00)
PROC: 05HY33Z Insertion of Infusion Device into Upper Vein, Percutaneous Approach (ICD-10-PCS; 2020-03-03)
DX: L03.116 Cellulitis of left lower limb (principal); E87.1 Hypo-osmolality and hyponatremia; D75.89 Other specified diseases of blood and blood-forming organs; I73.00 Raynaud's syndrome without gangrene; E03.9 Hypothyroidism, unspecified; I10 Essential (primary) hypertension; M19.90 Unspecified osteoarthritis, unspecified site; F32.9 Major depressive disorder, single episode, unspecified; A49.02 Methicillin resistant Staphylococcus aureus infection, unspecified site

== ENCOUNTER 2020-03-07 14:58 | Outpatient (CLI) | payer MEDICARE ==
[~2020-03-07] VITALS: Ht 167.6 cm; Wt 62.7 kg
[~2020-03-07 14:58] MED LIST changes: +COLCRYS0.6 MG PO; +ESTRATEST 1.25-1 TAB PO; +FLORAJEN3 CAPS460 MG PO; +FOLIC ACID1 MG PO; +HAIR SKIN PO; +HYDROCODON-ACE1 EA10 PO; +OMEPRAZOLE20 M1 PO; +PLAVIX75 MG PO; +VIT PO
[2020-03-07 15:13] VITALS: BP 158/70; Ht 167.6 cm; Wt 62.7 kg
--- NOTE | 2020-03-07 16:18 | NUR ---
1600 PT ARRIVED TO OPS FOR IV ABX,IV DECADRON, AND WOUND CARE TO FEET. OLD DRESSINGS REMOVED FROM FEET. LEFT FOOT APPEARS TO BE HEALING. SUTURES REMAIN ON ANTERIOR PART OF LEFT FOOT. BROWNISH DRIED DRAINAGE NOTED ON GUAZE. NO NEW DRAINAGE NOTED. SUTURE SITE IRRIGATED WITH NORMAL SALINE. AREA DRIED WITH GUAZE AND IN BETWEEN TOES. DRESSING MATERIAL PROVIDED BY PATIENT USED TO COVER SUTURE SITE. LEFT FOOT WRAPPED IN KERLIX AND THEN ANA ROSA BANDAGE. RIGHT FOOT SHOWS DARK AREAS ON LATERAL SIDE OF GREAT TOE AND UNDER 5TH METATARSAL. AREAS FLUSHED WTIH NS AND DRIED. DRESSING PROVIDED AND REQUESTED BY PATIENT TO USE ON THOSE AREAS WERE CUT TO SIZE AND COVERED. TEGADERM USED TO COVER AND HOLD MEDICATED PATCHES IN PLACE. PATIENT COVERED HER FOOT WITH A SOCK AND IS USING OPEN TOE ORTHO BOOTS TO AMBULATE. PT AND HER HAVE BEEN PERFORMING DRESSING CHANGES AT HOME WELL BEING COACHED BY HOME HEALTH ON PROCEDURE OF DRESSING THESE AREAS. BOTH VOICED THEIR APPROVAL OF DRESSING CHANGES DONE TODAY. THEY ARE TO FOLLOW UP ON TUESDAY FOR FURTHER EVALUATION AND TREATMENT OF FEET WOUNDS. 1630 PT HAS TOLERATED IV ANTIBIOTIC TREATMENT THAT HAS INFUSED THROUGH LEFT ARM PICC LINE. PRIOR TO INFUSION THE PICC LINE WAS CHECKED FOR BLOOD RETURN WHICH WAS EXCELLENT. PICC LINE FLUSHED WITH 1OCC NS.
--- NOTE | 2020-03-07 17:03 | NUR ---
1630 IVBP FINISHED. IV LINE FLUSH AND HEPARIN FLUSH GIVEN. FLUSHES WELL DRESSING CDI.
== END 2020-03-07 16:50 | disposition home or self-care (01) ==
LOC: D.OPS 14:58
PROVIDERS: ATTEND Clinical Nurse Specialist Family Health
DX: M86.172 Other acute osteomyelitis, left ankle and foot (principal)

== ENCOUNTER → 2020-04-23 19:45 | Outpatient (CLI) | payer MEDICARE ==
[2020-03-07 15:13] VITALS: BMI 22.3
[2020-04-23 20:17] LABS: BASOPHILS 0.7 % (0-2); EOSINOPHILS 2.5 % (0-7); HEMATOCRIT 32.2 % (36.0-48.0); HEMOGLOBIN 10.1 g/dL (12-16); IMMATURE GRANULOCYTES 0.2 % (0-5); LYMPHOCYTES 35.9 % (15-50); MCH 31.9 pg (26.0-34.0); MCHC 31.4 g/dL (31.0-37.0); MCV 101.6 fL (80.0-100.0); MEAN PLATELET VOLUME 10.8 fL (7.4-10.4); MONOCYTES 12.4 % (2-11); NEUTROPHILS 48.3 % (40-80); RBC 3.17 10x6/uL (4.00-5.40); RDW 19.1 % (11.5-14.5); WBC 5.7 10x3/uL (4.8-10.8)
[2020-04-23 20:22] LABS: PLATELET COUNT 330 10x3/uL (130-400)
[2020-04-23 22:49] LABS: ERYTHROCYTE SEDIMENTATION RATE 12 mm/hr (0-30)
== END | disposition home or self-care (01) ==
LOC: D.LABREF 19:45
PROVIDERS: ATTEND Clinical Nurse Specialist Family Health
DX: M86.9 Osteomyelitis, unspecified (principal)